=== PATIENT | male | born 1945 | race Caucasian/White ===

== ENCOUNTER 2018-11-11 07:22 | Day surgery (SDC) | payer BC, OTHER ==
[2018-11-10 14:29] VITALS: BMI 26.4
[2018-11-11 09:20] VITALS: TEMP 97.8
[2018-11-11 14:46] VITALS: BP 138/70; PULSE 59
--- NOTE | 2018-11-12 10:45 | PATH ---
Surgical Pathology Report Patient Name: DESMOND ANDERSON [facility]. Rec. #: [id number] /Age/Gender: 1945 (Age: 73) / M Account: [id number] Location: ASU-ENDOSCOPY Taken: 11/11/2018 Received: 11/11/2018 Reported: 11/12/2018 Physicians: Desmond Goodrich M.D. Specimen(s) Received BX DUODENUM POLYPS Clinical History Duodenal polyps Postoperative diagnosis: Duodenal polyps Final Diagnosis DUODENAL POLYPS, POLYPECTOMY: TUBULAR ADENOMA(S). Electronically Signed Sophia Ellis M.D. Gross Description Received in formalin, labeled "duodenal polyps" are 4 vera, irregular portions of soft tissue ranging in size from 0.5-0.7 cm. in greatest dimension. The base of the polyps are inked in blue. The 2 larger polyps are bisected. The specimens are submitted in 3 cassettes as follows: 1- 2 smaller polyps; 3-4 bisected larger polyps, one polyp each. MLSZ/11/11/2018 sanml/11/11/2018
== END 2018-11-11 10:20 | disposition home or self-care (01) ==
LOC: JASU-ENDO 07:22
PROVIDERS: ATTEND Internal Medicine Gastroenterology
PROC: 0DB98ZX Excision of Duodenum, Via Natural or Artificial Opening Endoscopic, Diagnostic (ICD-10-PCS; principal; 2018-11-11 08:45)
DX: K31.7 Polyp of stomach and duodenum (principal); E11.9 Type 2 diabetes mellitus without complications; I10 Essential (primary) hypertension; Z79.84 Long term (current) use of oral hypoglycemic drugs
CPT/HCPCS: 88305-TC

== ENCOUNTER 2019-11-02 13:57 | Inpatient (IN) | payer OTHER ==
--- NOTE | 2019-11-02 14:24 | PDOC ---
History of Present Illness - General Chief Complaint: Irregular Heart Beat Stated Complaint: IRREGULAR HEART RATE Time Seen by Provider: 11/02/19 14:17 History Source: Patient Exam Limitations: No Limitations - History of Present Illness Initial Comments: Desmond Jones is a 74 yo M w a hx of CAD, HTN, HLD, NIDDM, myasthenia gravis, and multiple bladder stones s/p lithotripsy multiple times who presents to the [facility] er sent in from radiology after they noticed an abnormal heart rate. The patient was getting a biopsy performed for a hernia in his abdomen. The nurse during the biopdy noted that he had an abnormal HR and sent him to the ER to be evaluated. The patient is asymptomatic and has no chest pain, palpitations, headache, nausea, vomiting, diaphoresis, weakness, numbness, tingling, or chills. PCP: Dr. Tolliver Cards: Dr. Moseley PSH: bladder stone lithotripsu Allergies: NKA, NKDA Social Hx: Denies smoking, drinking, or other substance usage Past History - Past Medical History Allergies/Adverse Reactions: Allergies Allergy/AdvReac Type Severity Reaction Status Date / Time No Known Drug Allergies Allergy Verified 11/02/19 10:47 Home Medications: Ambulatory Orders Atorvastatin Ca [Lipitor] 40 mg PO DAILY 12/23/13 metFORMIN HCL [Glucophage] 1,000 mg PO BID 12/23/13 Glimepiride [Glimepiride -] 1 mg PO DAILY 08/21/16 Sitagliptin Phosphate [Januvia] 100 mg PO DAILY 11/10/18 Omeprazole 20 mg PO DAILY 30 Days #30 capsule. 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) Disorders: No HTN: Yes Hypercholesterolemia: Yes Liver Disease: No Seizures: No Thyroid Disease: No - Surgical History Abdominal Surgery: No Appendectomy: No Cardiac Surgery: No Cholecystectomy: No Lung Surgery: No Neurologic Surgery: No Orthopedic Surgery: No - Psycho Social/Smoking Cessation Hx Smoking History: Former smoker Have you smoked in the past 12 months: No If you are a former smoker, when did you quit?: 1987 Hx Alcohol Use: Yes (rarely) Drug/Substance Use Hx: No Substance Use Type: Alcohol Hx Substance Use Treatment: No Cardiac Specific PMH - Complaint Specific PMHX Pacemaker: No Review of Systems - Review of Systems Able to Perform ROS?: Yes Comments:: CONSTITUTIONAL: Absent: fever, no chills, no fatigue EYES: Absent: visual changes ENT: Absent: ear pain, no sore throat CARDIOVASCULAR: Absent: chest pain, no palpitations RESPIRATORY: Absent: cough, no SOB GI: Absent: abdominal pain, no nausea, no vomiting, no constipation, no diarrhea GENITOURINARY: Absent: dysuria, no frequency, no hematuria MUSKULOSKELETAL: Absent: back pain, no arthralgia, no myalgia SKIN: Absent: rash NEURO: Absent: headache *Physical Exam - Vital Signs Last Vital Signs Temp Pulse Resp BP Pulse Ox 98.1 F 80 18 174/81 H 100 11/02/19 13:57 11/02/19 17:17 11/02/19 17:17 11/02/19 17:17 11/02/19 17:17 - Physical Exam GENERAL: Well-appearing, well-nourished. No apparent distress. HEENT: Normocephalic, atraumatic. PERRL, EOM intact. CARDIOVASCULAR: Irregular rhythm. Normal S1, S2. Regular rate. PULMONARY: No evidence of respiratory distress. Lungs clear to auscultation bilaterally. No wheezing, rales or rhonchi. ABDOMEN: Soft, non-distended, non-tender. EXTREMITIES: Normal ROM in all four extremities. No gross deformities. SKIN: Warm, dry. No rash NEUROLOGICAL: No focal neurological deficits. ED Treatment Course - LABORATORY CBC & Chemistry Diagram: 11/02/19 15:28 11/02/19 15:28 - ADDITIONAL ORDERS Additional order review: Laboratory Results 11/02/19 15:28 Sodium 143 Potassium 4.0 Chloride 111 H Carbon Dioxide 28 Anion Gap 4 L BUN 29.5 H Creatinine 1.7 H Est GFR (CKD-EPI)AfAm 44.41 Est GFR (CKD-EPI)NonAf 38.32 Random Glucose 126 H Calcium 8.6 Magnesium 1.8 Total Bilirubin 0.3 AST 21 ALT 43 Alkaline Phosphatase 67 Creatine Kinase 41 Troponin I 0.05 Total Protein 6.2 L Albumin 3.4 11/02/19 15:28 RBC 3.78 L MCV 92.3 MCHC 33.5 RDW 14.2 MPV 9.5 Neutrophils % 74.0 Lymphocytes % 15.9 D Monocytes % 8.5 Eosinophils % 0.9 Basophils % 0.7 - RADIOLOGY Radiology Studies Ordered: Category Date Time Status CHEST X-RAY PORTABLE* [RAD] Stat Radiology 11/02/19 14:25 Completed Medical Decision Making - Medical Decision Making Desmond Jones is a 74 yo M w a hx of CAD, HTN, HLD, NIDDM, myasthenia gravis, and multiple bladder stones s/p lithotripsy multiple times who presents to the [facility] er sent in from radiology after they noticed an abnormal heart rate. The patient was getting a biopsy performed for a hernia in his abdomen. The nurse during the biopdy noted that he had an abnormal HR and sent him to the ER to be evaluated. The patient is asymptomatic and has no chest pain, palpitations, headache, nausea, vomiting, diaphoresis, weakness, numbness, tingling, or chills. Vital Signs Temp Pulse Resp BP Pulse Ox 98.1 F 84 16 180/90 H 100 11/02/19 13:57 11/02/19 13:57 11/02/19 13:57 11/02/19 13:57 11/02/19 13:57 - hypertensive DDx IBNLT: A-fib vs flutter, Hypertensive urgency w renal vs cardiac end organ damage, ACS Plan: EKG, labs, urine, re-assess EKG: Irregularly irregular, A-fib w/ premature ventricular complexes, rate of 79 , narrow complexes, normal axis, no hypertrophy, no ST elevations or depressions , no abnormal TWI's Labs: ANTONIO re-assessment: Patient has an ANTONIO and new onset A-fib - Spoke with Dr. Tolliver - the ANTONIO is not actually new and the patient has had it in the past Disposition: Admit to telemetry - HTN - A-fib Discharge - Discharge Information Problems reviewed: Yes Clinical Impression/Diagnosis: ANTONIO (acute kidney injury) A-fib Qualifiers: Atrial fibrillation type: unspecified Qualified Code(s): I48.91 - Unspecified atrial fibrillation Hypertension Qualifiers: Hypertension type: unspecified Qualified Code(s): I10 - Essential (primary) hypertension Condition: Stable - Admission Yes - Follow up/Referral - Patient Discharge Instructions - Post Discharge Activity
[2019-11-02 14:42] VITALS: BMI 22.7
[2019-11-02 15:47] LABS: BASO % 0.7 % (0-2.0); EOS % 0.9 % (0-4.5); HEMATOCRIT 34.9 % (35.4-49); HEMOGLOBIN 11.7 GM/dL (11.7-16.9); LYMPH % 15.9 % (8-40); MCH 30.9 pg (25.7-33.7); MCHC 33.5 g/dl (32.0-35.9); MEAN CELL VOLUME 92.3 fl (80-96); MEAN PLT VOLUME 9.5 fl (7.5-11.1); MONO % 8.5 % (3.8-10.2); PLATELET COUNT 143 K/MM3 (134-434); RBC 3.78 M/mm3 (4.00-5.60); RDW 14.2 % (11.9-15.9); WHITE BLOOD COUNT 8.5 K/mm3 (4.0-10.0)
[2019-11-02 16:25] LABS: ALBUMIN 3.4 g/dl (3.4-5.0); BILIRUBIN,TOTAL 0.3 mg/dL (0.2-1); BLOOD UREA NITROGEN 29.5 mg/dL (7-18); CALCIUM 8.6 mg/dL (8.5-10.1); CREATININE 1.7 mg/dL (0.55-1.3); MAGNESIUM 1.8 mg/dL (1.8-2.4); TOT PROT 6.2 g/dl (6.4-8.2)
--- NOTE | 2019-11-02 17:39 | PDOC ---
Attending Attestation - Resident Resident Name: Dorian Cates - ED Attending Attestation I have performed the following: I have examined & evaluated the patient, The case was reviewed & discussed with the resident, I agree w/resident's findings & plan - HPI HPI: 11/02/19 17:33 74-year-old male with history of hypertension, myasthenia gravis presents from scheduled routine outpatient biopsy with new onset atrial fibrillation, asymptomatic. Denies chest pain or dyspnea on exertion, at baseline has exercise tolerance only limited by his myasthenia gravis. No stimulants, no additional caffeine, has been n.p.o. for his procedure since midnight. Some recent weight loss, otherwise review of systems is unremarkable. - Physicial Exam PE: 11/02/19 17:34 Vitals as noted, slightly elevated blood pressure, heart rate is normal Well-appearing seated in stretcher eating soup overall irregular rhythm, normal rate lungs clear, slight crackles at both bases abd benign no edema/calf ttp - Medical Decision Making 11/02/19 17:38 74-year-old male with new onset asymptomatic atrial fibrillation seen on routine outpatient biopsy, rate controlled here and hemodynamically stable. Check labs, EKG, heart monitoring Discussed with cardiology Likely admission for echo and cardiac evaluation/management Heart Score/ECG Review #1 ECG reviewed & interpreted by me at: 14:30 General ECG Interpretation: Normal Rate (afib at 79), Normal Intervals (qtc 438) , No acute ischemic changes
[2019-11-02] MEDS ORDERED: LABETALOL HCL 5 MG/1 ML (100MG/20 ML VIAL) IVPUSH ONE (19:58)
--- NOTE | 2019-11-02 20:26 | HP ---
CHIEF COMPLAINT: abnormal heart rhythm PCP: Dr. Leonard Tolliver Cardiology: Dr. Jason Moseley HISTORY OF PRESENT ILLNESS: Desmond Jones is a 74 year old male with a past medical history of hypertension, diabetes mellitus, myasthenia gravis, multiple bladder stones s/p lithotripsy, gastric/colonic polys, hernia presented to the emergency department after undergoing a biopsy procedure for a questionable mass and hernias with Dr. Cardenas. Patient was noted on the monitor to have an irregular heart rhythm and was sent to the emergency room for further evaluation. Patient stated that he was at his baseline level of health and does not have any acute symptoms of chest pain, palpitations, shortness of breath, dizziness, lightheadedness, headaches, fevers, chills, abdominal pain, nausea, vomiting, extremity pain, dysuria, hematuria, visual changes. He noted that he had not taken any of his home medications in 3 days in preparation for the biopsy procedure today. Of note, patient's spouse was recently hospitalized and is currently in a rehab center and patient stated that he has been under a significant amount of stress lately. 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 Famotidine 1 tablet PO DAILY 11/02/19 Multivitamin [One-Daily 1 each PO DAILY 11/02/19 Multi-Vitamin] Prednisone 10 mg PO DAILY 11/02/19 Pyridostigmine [place] [Mestinon] 60 mg PO TID 11/02/19 Tamsulosin HCl [Flomax] 1 tablet PO DAILY 11/02/19 REVIEW OF SYSTEMS CONSTITUTIONAL: Absent: fever, chills, diaphoresis, generalized weakness, malaise, loss of appetite, HEENT: Absent: rhinorrhea, nasal congestion, throat pain, throat swelling, difficulty swallowing,eye pain, visual changes CARDIOVASCULAR: Absent: chest pain, syncope, palpitations, irregular heart rate, lightheadedness , peripheral edema RESPIRATORY: Absent: cough, shortness of breath, dyspnea with exertion, orthopnea, wheezing, GASTROINTESTINAL: Absent: abdominal pain, abdominal distension, nausea, vomiting, diarrhea, constipation GENITOURINARY: Absent: dysuria, frequency, urgency, hesitancy, hematuria, flank pain, genital pain MUSCULOSKELETAL: Absent: myalgia, arthralgia, joint swelling, back pain, neck pain SKIN: Absent: rash, itching, pallor HEMATOLOGIC/IMMUNOLOGIC: Absent: easy bleeding, easy bruising, lymphadenopathy, frequent infections ENDOCRINE: Absent: unexplained weight gain, unexplained weight loss, heat intolerance, cold intolerance NEUROLOGIC: Absent: headache, focal weakness or paresthesias, dizziness, unsteady gait, seizure, mental status changes PSYCHIATRIC: Absent: anxiety, depression, suicidal or homicidal ideation, hallucinations. PHYSICAL EXAMINATION Vital Signs - 24 hr 11/02/19 11/02/19 11/02/19 13:57 17:17 19:25 Temperature 98.1 F 98 F Pulse Rate 84 Pulse Rate [ 80 72 Right] Respiratory 16 18 19 Rate Blood Pressure 180/90 H Blood Pressure 174/81 H 195/91 H [Right Arm] O2 Sat by Pulse 100 100 100 Oximetry (%) GENERAL: Awake, alert, and fully oriented, in no acute distress. HEAD: Normal with no signs of trauma. EYES: Pupils equal, round and reactive to light, extraocular movements intact, sclera anicteric, conjunctiva clear EARS, NOSE, THROAT: Oropharynx clear without exudates. Moist mucous membranes. NECK: Normal range of motion, supple without lymphadenopathy, JVD LUNGS: Breath sounds equal, clear to auscultation bilaterally. No wheezes, and no crackles. No accessory muscle use. HEART: Normal rate and irregular rhythm, normal S1 and S2 without murmur, rub. ABDOMEN: Soft, nontender, not distended, normoactive bowel sounds, no guarding, no rebound. Noted post-surgical biopsy lesions midline and RLQ. Palpated round mass in the RUQ. MUSCULOSKELETAL: Normal range of motion at all joints. No bony deformities or tenderness. No CVA tenderness. UPPER EXTREMITIES: 2+ pulses, warm, well-perfused. No cyanosis. No clubbing. No peripheral edema. LOWER EXTREMITIES: 2+ pulses, warm, well-perfused. No calf tenderness. No peripheral edema. NEUROLOGICAL: Cranial nerves II-XII intact. 5/5 muscle strength bilaterally upper and lower extremities. Sensation intact to PSYCHIATRIC: Cooperative. Good eye contact. Appropriate mood and affect. SKIN: Warm, dry, normal turgor, no rashes or lesions noted, normal capillary refill. Laboratory Results - last 24 hr 11/02/19 11/02/19 15:28 15:28 WBC 8.5 RBC 3.78 L Hgb 11.7 Hct 34.9 L MCV 92.3 MCH 30.9 MCHC 33.5 RDW 14.2 Plt Count 143 MPV 9.5 Absolute Neuts (auto) 6.3 Neutrophils % 74.0 Lymphocytes % 15.9 D Monocytes % 8.5 Eosinophils % 0.9 Basophils % 0.7 Nucleated RBC % 0 Sodium 143 Potassium 4.0 Chloride 111 H Carbon Dioxide 28 Anion Gap 4 L BUN 29.5 H Creatinine 1.7 H Est GFR (CKD-EPI)AfAm 44.41 Est GFR (CKD-EPI)NonAf 38.32 Random Glucose 126 H Calcium 8.6 Magnesium 1.8 Total Bilirubin 0.3 AST 21 ALT 43 Alkaline Phosphatase 67 Creatine Kinase 41 Troponin I 0.05 Total Protein 6.2 L Albumin 3.4 ASSESSMENT/PLAN: Desmond Jones is a 74 year old male with a past medical history of hypertension, diabetes mellitus, myasthenia gravis, multiple bladder stones s/p lithotripsy, gastric/colonic polys, hernia admitted for new onset atrial fibrillation and hypertensive urgency. New Onset Atrial Fibrillation - unclear source, ? hx of CAD, however patient denies - EKG noting afib, age indeterminate anterior infarct, no ST segment changes, normal axis, late R-R transition, QTc 438 - CHADS-VASC 4 - Cardiology consulted - start Toprol XL 50mg daily - repeat EKG - Echo ordered - heparin drip to be converted to oral AC as per cardiology - TSH Hypertensive Urgency - has not taken any medications in 3 days in preparation for biopsy, not on any BP meds - given labatalol 10mg once - start lisinopril 10mg daily - start Toprol XL 50mg daily CKD - CRE 1.7, unclear baseline - as per EM resident who spoke with Dr. Tolliver, patient at baseline CRE - attempt to obtain records from Dr. Tolliver in AM - UA negative for acute process, microalbumin - renal/bladder U/S S/p Biopsy of hernia - f/u on biopsy results DM - ACHS - ISS - A1c - hold home diabetic meds Myasthenia Gravis - restart home pyrodostigmine and prednisone Hx of Renal Stones - restart home tamsulosin HLD - restart home Lipitor DVT PPx - on heparin drip FEN - no standing fluids - continue to monitor electrolytes and replete as necessary - Sodium/Diabetic Diet Dispo - admit to telemetry - has had medication reconciliation completed Family Medical History Family Hx Coronary Artery Disease: Father Visit type - Emergency Visit Emergency Visit: Yes ED Registration Date: 11/02/19 Care time: The patient presented to the Emergency Department on the above date and was hospitalized for further evaluation of their emergent condition. - New Patient This patient is new to me today: Yes Date on this admission: 11/03/19 - Critical Care Critical Care patient: No
[2019-11-02] MEDS ORDERED: HEPARIN NA (PORCINE) 5,000 UNITS/ML 1ML VIAL IVPUSH PRN ×2 (20:36)
[2019-11-02] MEDS ORDERED: HEPARIN - 25,000 UNIT in SODIUM CHLORIDE 495 ML IV SCH (20:45)
[2019-11-02] MEDS ORDERED: ATORVASTATIN CA 40 MG TABLET (FP) PO SCH (22:00)
[2019-11-02] MEDS ORDERED: ATORVASTATIN CA 40 MG TABLET (FP) ONE (22:11)
[2019-11-02] MEDS ORDERED: INSULIN (NOVOLOG) ASPART 100 UNITS/ML 10ML VIAL ONE (22:39)
[2019-11-02] MEDS: INSULIN SLIDING SCALE (NOVOLOG) 1 VIAL SQ SCH (22:43)
[2019-11-02] MEDS: PYRIDOSTIGMINE BROMIDE 60 MG TABLET PO SCH (23:04)
--- NOTE | 2019-11-03 00:42 | PN ---
Teaching Attending Note Name of Resident: Sb Becerril ATTENDING PHYSICIAN STATEMENT I saw and evaluated the patient. I reviewed the resident's note and discussed the case with the resident. I agree with the resident's findings and plan as documented. SUBJECTIVE: 74 yo man w a history of CAD, HTN, HLD, NIDDM, myasthenia gravis, and multiple bladder stones s/p lithotripsy multiple times sent in from radiology after they noticed an abnormal heart rate. The patient was getting a biopsy performed for a hernia in his abdomen. The patient is asymptomatic and has no chest pain, palpitations, headache, nausea, vomiting, diaphoresis, weakness, numbness, tingling, or chills. OBJECTIVE: Last Vital Signs Temp Pulse Resp BP Pulse Ox 98 F 75 17 181/86 H 97 11/02/19 19:25 11/02/19 23:25 11/02/19 23:25 11/02/19 23:25 11/02/19 23:25 GENERAL: Well developed, well nourished. Awake and alert. No acute distress. HEENT: Normocephalic, atraumatic. PERRLA, EOMI. No conjunctival pallor. Sclera are non- icteric. NECK: Supple. Full ROM. No JVD. Carotid pulses 2+ and symmetric, without bruits. No thyromegaly. No lymphadenopathy. CARDIOVASCULAR: Irregularly irregular rhythm. No murmurs or rubs or gallops appreciated. PULMONARY: No evidence of respiratory distress. Lungs clear to auscultation bilaterally. No wheezing, rales or rhonchi. ABDOMINAL: Soft. Non-tender. Non-distended. No rebound or guarding. No organomegaly. Normoactive bowel sounds. MUSCULOSKELETAL Normal range of motion at all joints. No bony deformities or tenderness. No CVA tenderness. EXTREMITIES: No cyanosis. No clubbing. No edema. No calf tenderness. SKIN: Warm and dry. Normal capillary refill. No rashes. No jaundice. PSYCHIATRIC: Cooperative. Good eye contact. Appropriate mood and affect. Abnormal Lab Results 11/02/19 11/02/19 15:28 15:28 RBC 3.78 L Hct 34.9 L Chloride 111 H Anion Gap 4 L BUN 29.5 H Creatinine 1.7 H Random Glucose 126 H Total Protein 6.2 L Imaging studies reviewed ASSESSMENT AND PLAN: #New onset Atrial fibrillation- CHADSVASC2 score of 4 Start anticoagulation with heparin drip Monitor heart rate closely for rate control Transthoracic echo to evaluate for valvular pathology Send TSH Cardiology consult #Elevated creatinineAKI versus CKD, no baseline creatinine for comparison IV fluid hydration Repeat chemistry Renal sonogram Avoid nephrotoxins Send UA Urine for microalbumin #Severe uncontrolled hypertension Start lisinopril 10 mg p.o. daily, Toprol 50 mg p.o. daily Monitor BP closely and titrate medications as needed #DM NovoLog sliding scale, basal insulin, A1c Diabetic diet Aspirin Statin #myasthenia gravis Continue with home dose Pyridostimine [place] Heparin subcutaneously for DVT prophylaxis
[2019-11-03 05:07] LABS: INR 1.03 (0.83-1.09); PROTHROMBIN TIME (PATIENT) 12.1 SEC (9.7-13.0)
[2019-11-03 05:10] LABS: ACTIVATED PTT 34.6 SECONDS (25.2-36.5)
[2019-11-03 05:36] LABS: EPI CELLS 1.7 /HPF (0-5/HPF); HYALINE CASTS 7 /lpf (0-8); PH,URINE 6.5 (5.0-8.0); URINE APPEARANCE CLEAR; URINE BACTERIA 2.7 /hpf (NEGATIVE); URINE BILIRUBIN NEGATIVE (NEGATIVE); URINE COLOR YELLOW; URINE GLUCOSE (UA) NEGATIVE (NEGATIVE); URINE KETONE NEGATIVE (NEGATIVE); URINE LEUK ESTERASE NEGATIVE (NEGATIVE); URINE NITRITE NEGATIVE (NEGATIVE); URINE PROTEIN NEGATIVE (NEGATIVE); URINE RBC 5 /hpf (0-4); URINE UROBILINOGEN 0.2 mg/dL (0.2-1.0); URINE WBC 1 /hpf (0-5)
[2019-11-03] MEDS: INSULIN SLIDING SCALE (NOVOLOG) 1 VIAL SQ SCH ×3 (07:02→17:10)
[2019-11-03] MEDS: PYRIDOSTIGMINE BROMIDE 60 MG TABLET PO SCH ×2 (07:02→14:55)
[2019-11-03 07:47] LABS: BASO % 0.4 % (0-2.0); EOS % 1.2 % (0-4.5); HEMATOCRIT 34.8 % (35.4-49); HEMOGLOBIN 11.7 GM/dL (11.7-16.9); LYMPH % 20.3 % (8-40); MCHC 33.6 g/dl (32.0-35.9); MEAN CELL VOLUME 92.2 fl (80-96); MEAN PLT VOLUME 9.2 fl (7.5-11.1); MONO % 8.3 % (3.8-10.2); NEUT % 69.8 % (42.8-82.8); PLATELET COUNT 140 K/MM3 (134-434); RBC 3.78 M/mm3 (4.00-5.60); RDW 14.1 % (11.9-15.9); WHITE BLOOD COUNT 7.6 K/mm3 (4.0-10.0)
[2019-11-03 08:22] LABS: ALBUMIN 3.2 g/dl (3.4-5.0); BILIRUBIN,TOTAL 0.5 mg/dL (0.2-1); BLOOD UREA NITROGEN 26.2 mg/dL (7-18); CALCIUM 8.6 mg/dL (8.5-10.1); CREATININE 1.7 mg/dL (0.55-1.3); MAGNESIUM 1.8 mg/dL (1.8-2.4); POTASSIUM 3.7 mmol/L (3.5-5.1); TOT PROT 6.1 g/dl (6.4-8.2)
[2019-11-03] MEDS ORDERED: TAMSULOSIN HCL 0.4 MG CAP PO SCH (08:30)
[2019-11-03] MEDS ORDERED: FAMOTIDINE 20 MG TABLET PO SCH (10:00)
[2019-11-03] MEDS ORDERED: MULTIVITAMINS (DAILY MVI) TABLET (FP) PO SCH (10:00)
[2019-11-03] MEDS ORDERED: LISINOPRIL 10 MG TABLET (FP) PO SCH (10:00)
[2019-11-03] MEDS ORDERED: predniSONE 10 MG TABLET (UD) PO SCH (10:00)
--- NOTE | 2019-11-03 12:44 | EKG ---
Test Reason : Blood Pressure : / mmHG Vent. Rate : 079 BPM Atrial Rate : 113 BPM P-R Int : 000 ms QRS Dur : 096 ms QT Int : 382 ms P-R-T Axes : 000 -10 068 degrees QTc Int : 438 ms UNDETERMINED RHYTHM POSSIBLE SINUS RHYTHM WITH FREQUENT PREMATURE ATRIAL COMPLEXES VS ECTOPIC ATRIAL RHYTHM. ANTERIOR INFARCT , AGE UNDETERMINED ABNORMAL ECG Confirmed by MD AVRIL, LORNA ([id number]) on 11/03/2019 12:43:54 PM Referred By: Confirmed By:LRONA MACKENZIE MD
--- NOTE | 2019-11-03 12:57 | ECHO ---
Version: 1 Name: OLGA ANDERSON Exam: Adult Echocardiogram Study Date: 11/03/2019, 11:05 AM Age: 74 Years MMode/2D Measurements & Calculations IVSd: 1.18 cm LVIDs: 2.8 cm LVIDd: 4.1 cm LVPWd: 0.82 cm ACS: 2.16 cm Ao root diam: 3.3 cm LVOT diam: 1.82 cm LA dimension: 3.6 cm Doppler Measurements & Calculations MV E max ryan: 65.8 cm/sec Med E/e': 13.0 MV A max ryan: 72.9 cm/sec Med Peak E' Ryan: 5.0 cm/sec MV E/A: 0.90 Lat E/e': 11.5 Lat Peak E' Ryan: 5.7 cm/sec MR max P.6 mmHg Ao max P.7 mmHg JAMES(I,D): 1.63 cm Ao mean P.7 mmHg LV V1 mean: 57.8 cm/sec Ao V2 max: 147.7 cm/sec LV V1 mean P.51 mmHg PI end-d ryan: 106.2 cm/sec TR max ryan: 202.6 cm/sec TR max P.8 mmHg Left Ventricle The left ventricular size, thickness and function are normal. EF 59%. Abnormal diastolic compliance. Right Ventricle The right ventricle is normal in size and function. Atria Normal left and right atrial size and function. Mitral Valve There is mild mitral annular calcification. Normal MV function. Tricuspid Valve The tricuspid valve is not well visualized, but is grossly normal. There is Trace to mild tricuspid regurgitation. PASP 22 mmHg. Aortic Valve Fibrocalcification of the aortic valve without significant aortic stenosis. Pulmonic Valve The pulmonic valve is not well seen, but is grossly normal. Great Vessels The aortic root is normal size. Pericardium/Pleura Small pericardial effusion (<1cm). Summary Statements The left ventricular size, thickness and function are normal Abnormal diastolic compliance EF 59% The right ventricle is normal in size and function. Normal left and right atrial size and function. There is mild mitral annular calcification. Normal MV function. The tricuspid valve is not well visualized, but is grossly normal. There is Trace to mild tricuspid regurgitation. PASP 22 mmHg Fibrocalcification of the aortic valve without significant aortic stenosis. Small pericardial effusion (<1cm) MD Álvaro Archer 11/03/2019, 12:57 PM Ordering Physician: Sb Becerril Performed By: Jenifer Wang
--- NOTE | 2019-11-03 13:13 | CON.CARD ---
Consult Consult Specialty:: Cardiology Referred by:: Medicine Reason for Consultation:: irregular HR - History of Present Illness Chief Complaint: irregular heart rate after biopsy History of Present Illness: 74M h/o HTN, DM, myasthenia gravis, bladder stones s/p lithotripsy, gastric/ colonic polyps, hernia presented after undergoing bx for mass at IR, noted on monitor to have irregular heart rhythm, sent to ER for further evaluation. Sees Dr. Moseley for cardio, per his PCP Dr. Tolliver as a history of sinus arrhythmia and PACs, no prior cardiac hx. No chest pain, palps, dizziness, dyspnea, has not seen Dr Moseley recently. - Alcohol/Substance Use Hx Alcohol Use: Yes (rarely) - Smoking History Smoking history: Former smoker Have you smoked in the past 12 months: No If you are a former smoker, when did you quit?: 1987 Home Medications - Allergies Allergies/Adverse Reactions: Allergies Allergy/AdvReac Type Severity Reaction Status Date / Time No Known Drug Allergies Allergy Verified 11/02/19 10:47 - Home Medications Home Medications: Ambulatory Orders Atorvastatin Ca [Lipitor] 40 mg PO DAILY 12/23/13 metFORMIN HCL [Glucophage] 1,000 mg PO BID 12/23/13 Glimepiride [Glimepiride -] 1 mg PO DAILY 08/21/16 Sitagliptin Phosphate [Januvia] 100 mg PO DAILY 11/10/18 Famotidine 1 tablet PO DAILY 11/02/19 Multivitamin [One-Daily Multi-Vitamin] 1 each PO DAILY 11/02/19 Prednisone 10 mg PO DAILY 11/02/19 Pyridostigmine [place] [Mestinon] 60 mg PO TID 11/02/19 Tamsulosin HCl [Flomax] 1 tablet PO DAILY 11/02/19 Family Medical History Family History: Unremarkable Review of Systems - Review of Systems Constitutional: reports: No Symptoms Eyes: reports: No Symptoms HENT: reports: No Symptoms Neck: reports: No Symptoms Cardiovascular: reports: No Symptoms Respiratory: reports: No Symptoms Gastrointestinal: reports: No Symptoms Genitourinary: reports: No Symptoms Musculoskeletal: reports: No Symptoms Integumentary: reports: No Symptoms Neurological: reports: No Symptoms Endocrine: reports: No Symptoms Hematology/Lymphatic: reports: No Symptoms Psychiatric: reports: No Symptoms Vital Signs: Vital Signs Temperature 97.8 F 11/03/19 07:36 Pulse Rate 61 11/03/19 09:11 Respiratory Rate 14 11/03/19 09:11 Blood Pressure 172/79 H 11/03/19 09:11 O2 Sat by Pulse Oximetry (%) 98 11/03/19 09:11 Constitutional: Yes: No Distress, Calm Eyes: Yes: Conjunctiva Clear, EOM Intact HENT: Yes: Atraumatic, Normocephalic Neck: Yes: Supple, Trachea Midline Respiratory: Yes: Regular, CTA Bilaterally Gastrointestinal: Yes: Normal Bowel Sounds, Soft Cardiovascular: Yes: Pulse Irregular JVD: No Musculoskeletal: No: Back Pain Extremities: No: Cold Edema: No Neurological: Yes: Alert, Oriented Psychiatric: No: Agitated - Other Data Labs, Other Data: CBC, BMP 11/03/19 06:20 11/03/19 06:20 INR, PTT INR 1.03 (0.83-1.09) 11/03/19 04:10 Troponin, BNP 11/02/19 11/03/19 15:28 06:20 Troponin I 0.05 0.07 H Troponin, BNP 11/02/19 11/03/19 15:28 06:20 Troponin I 0.05 0.07 H Assessment/Plan EKG sinus with PACs echo 10/2019 nl LV/RV function, mild MAC, tr to mild TR, PASP 22 mmHg, sm pericardial effusion <1 cm tele: sinus with PACs irregular heart rhythm - EKG shows sinus with PACs, no afib noted on tele - echo unremarkable - dc metoprolol and AC - follow up with Dr. Moseley, recommend outpatient holter - stable for dc from cardiac perspective pericardial effusion - small on echo, no signs of tamponade - outpatient follow up Hypertensive urgency - BP improved on lisinopril, continue CKD - Cr at baseline, follow up with Dr. Tolliver DM - manage per primary myasthenia gravis - cont home meds HLD - cont lipitor
[2019-11-03 14:34] VITALS: PULSE 63
--- NOTE | 2019-11-03 18:16 | DS ---
Physical Examination Vital Signs: Vital Signs Temperature 97.9 F 11/03/19 14:33 Pulse Rate 63 11/03/19 14:33 Respiratory Rate 16 11/03/19 14:33 Blood Pressure 127/70 11/03/19 14:33 O2 Sat by Pulse Oximetry (%) 99 11/03/19 14:33 Findings/Remarks: Seen an d examined at bedside, wants to go home, no cp, no symptoms, feels good. Constitutional: Yes: Well Nourished, No Distress, Calm HENT: Yes: WNL, Atraumatic, Normocephalic Neck: Yes: WNL, Supple, Trachea Midline Cardiovascular: Yes: WNL, Regular Rate and Rhythm Respiratory: Yes: WNL, Regular, CTA Bilaterally Gastrointestinal: Yes: WNL, Normal Bowel Sounds, Soft Musculoskeletal: Yes: WNL Extremities: Yes: WNL Edema: No Labs: CBC, BMP 11/03/19 06:20 11/03/19 06:20 Discharge Summary Problems reviewed: Yes Reason For Visit: ACUTE KIDNEY INJURY Current Active Problems A-fib (Acute) ANTONIO (acute kidney injury) (Acute) Hypertension (Acute) Hospital Course: 74M h/o HTN, DM, myasthenia gravis, bladder stones s/p lithotripsy, gastric/ colonic polyps, hernia presented after undergoing bx for mass at IR, noted on monitor to have irregular heart rhythm, sent to ER for further evaluation. Sees Dr. Moseley for cardio, per his PCP Dr. Tolliver as a history of sinus arrhythmia and PACs, no prior cardiac hx. No chest pain, palps, dizziness, dyspnea, has not seen Dr Moseley recently. In ER was started on bb and heparin gtt, seen by cardio and taken off meds EKG sinus with PACs echo 10/2019 nl LV/RV function, mild MAC, tr to mild TR, PASP 22 mmHg, sm pericardial effusion <1 cm tele: sinus with PACs irregular heart rhythm - EKG shows sinus with PACs, no afib noted on tele - echo unremarkable - dc metoprolol and AC - follow up with Dr. Moseley, recommend outpatient holter - stable for dc from cardiac perspective pericardial effusion - small on echo, no signs of tamponade - outpatient follow up Hypertensive urgency - BP improved on lisinopril, will write new script and followup with cardio outpatient CKD DM myasthenia gravis HLD stable for dc home with close followup Condition: Stable - Instructions Referrals: Addy Tolliver MD [Primary Care Provider] - Disposition: HOME - Home Medications Comprehensive Discharge Medication List: Ambulatory Orders Atorvastatin Ca [Lipitor] 40 mg PO DAILY 12/23/13 metFORMIN HCL [Glucophage] 1,000 mg PO BID 12/23/13 Glimepiride [Glimepiride -] 1 mg PO DAILY 08/21/16 Sitagliptin Phosphate [Januvia] 100 mg PO DAILY 11/10/18 Famotidine 1 tablet PO DAILY 11/02/19 Multivitamin [One-Daily Multi-Vitamin] 1 each PO DAILY 11/02/19 Prednisone 10 mg PO DAILY 11/02/19 Pyridostigmine [place] [Mestinon] 60 mg PO TID 11/02/19 Tamsulosin HCl [Flomax] 1 tablet PO DAILY 11/02/19 Lisinopril [Prinivil] 10 mg PO DAILY #30 tablet 11/03/19
[2019-11-03 18:19] VITALS: BP 122/69; TEMP 98.1
[2019-11-04 12:11] LABS: MICROALBUMIN/CREATININE RATIO 78.7 mg/g creat (0.0-30.0)
== END 2019-11-03 18:39 | disposition home or self-care (01) | DRG 309 ==
LOC: SUPCPDRO 13:57 → JER 13:57 → JERBED 16:28
PROVIDERS: ADMIT Internal Medicine; ATTEND Internal Medicine
DX: I49.9 Cardiac arrhythmia, unspecified (principal); I31.3 Pericardial effusion (noninflammatory); G70.00 Myasthenia gravis without (acute) exacerbation; I48.91 Unspecified atrial fibrillation; E11.9 Type 2 diabetes mellitus without complications; E78.5 Hyperlipidemia, unspecified; I16.0 Hypertensive urgency; I12.9 Hypertensive chronic kidney disease with stage 1 through stage 4 chronic kidney disease, or unspecified chronic kidney disease; N18.9 Chronic kidney disease, unspecified
CPT/HCPCS: 36415; 71045-TC-FY; 76775-TC; 76856-TC; 80053; 80061; 81003; 82043; 82550; 82570; 82962; 83036; 83721; 83735; 84443; 84484; 85025; 85610; 85730; 93005; 93010; 93306-TC; 99285-25; J1644

== ENCOUNTER → 2019-11-02 | Day surgery (SDC) | payer OTHER ==
[2019-10-30 19:18] VITALS: BMI 23.3
[2019-11-02 10:30] LABS: BASO % 0.3 % (0-2.0); EOS % 0.8 % (0-4.5); HEMATOCRIT 38.2 % (35.4-49); HEMOGLOBIN 12.9 GM/dL (11.7-16.9); LYMPH % 9.9 % (8-40); MCH 31.5 pg (25.7-33.7); MCHC 33.9 g/dl (32.0-35.9); MEAN CELL VOLUME 92.9 fl (80-96); MEAN PLT VOLUME 9.7 fl (7.5-11.1); MONO % 8.4 % (3.8-10.2); NEUT % 80.6 % (42.8-82.8); PLATELET COUNT 152 K/MM3 (134-434); RBC 4.12 M/mm3 (4.00-5.60); RDW 14.3 % (11.9-15.9)
[2019-11-02 10:43] LABS: INR 1.03 (0.83-1.09); PROTHROMBIN TIME (PATIENT) 12.1 SEC (9.7-13.0)
[2019-11-02 11:14] VITALS: TEMP 97.5
[2019-11-02 13:41] VITALS: BP 168/75; PULSE 71
--- NOTE | 2019-11-04 13:06 | PATH ---
Surgical Pathology Report Patient Name: OLGA ANDERSON [facility]. Rec. #: [id number] /Age/Gender: 1945 (Age: 74) / M Account: [id number] Location: RADIOLOGY INTER Taken: 11/02/2019 Received: 11/02/2019 Reported: 11/04/2019 Physicians: Yash Wang M.D. Robert J. Raniolo, M.D. Specimen(s) Received A: RIGHT INGUINAL SOFT TISSUE B: ABDOMINAL WALL SOFT TISSUE Clinical History 74-year-old male with enlarged prostate and right inguinal soft tissue mass and right lower quadrant abdominal wall soft tissue mass. Final Diagnosis A. SOFT TISSUE, RIGHT INGUINAL, NEEDLE CORE BIOPSY: SPINDLE CELL LESION, FAVOR DESMOID TYPE FIBROMATOSIS. B. SOFT TISSUE, RIGHT LOWER QUADRANT ABDOMEN, NEEDLE CORE BIOPSY: SPINDLE CELL LESION, FAVOR DESMOID TYPE FIBROMATOSIS. Comment: Both specimens show a similar morphologic pattern of a spindle cell lesion with variable cellularity with areas of sclerosis. No significant cytologic atypia is identified. No increased proliferative activity is identified. Immunohistochemical stains performed at [place], [place] ([id number]) and interpreted at [facility] show the following results: The spindle cells stain with vimentin, smooth muscle actin, focally with calretin, and focal weak staining with cyclin D1. There is cytoplasmic staining with beta catenin, with some cells also showing nuclear staining. The tumor does not stain with CD34, S100, CD117, or DOG-1. 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 Not all of those tumors will show nuclear staining with beta catenin. The differential diagnosis includes scar tissue, Correia fibroma, myofibroma, calcifying pseudotumor, and sclerosing mesenteritis/idiopathic retroperitoneal fibrosis. No metastatic carcinoma or other malignant features are identified in the current specimen. This case was discussed with Dr. Addy Tolliver at 12:45 PM on November 04, 2019. Electronically Signed Judson Canada M.D. Gross Description A. Received in formalin labeled "right inguinal," are 3 vera, cylindrical portions of soft tissue ranging from 1.0-2.3 cm in length and averaging 0.1 cm in diameter. The specimens are submitted in toto in one cassette. B. Received in formalin labeled "right lower quadrant abdomen," are 3 vera, cylindrical portions of soft tissue ranging from 0.4-1.6 cm in length and averaging 0.1 cm in diameter. The specimens are submitted in toto in one cassette. 11/02/2019 [facility]11/02/2019
== END | disposition home or self-care (01) ==
LOC: JRADIR 09:42
PROVIDERS: ATTEND Specialist
PROC: BW20ZZZ Computerized Tomography (CT Scan) of Abdomen (ICD-10-PCS; principal; 2019-11-02)
PROC: 0WBF3ZX Excision of Abdominal Wall, Percutaneous Approach, Diagnostic (ICD-10-PCS; 2019-11-02)
DX: D48.7 Neoplasm of uncertain behavior of other specified sites (principal); M72.8 Other fibroblastic disorders
CPT/HCPCS: 20206; 36415; 76942-TC; 82962; 85025; 85610; 87899; 88305-TC